=== PATIENT | female | born 1970 | race Caucasian/White ===

== ENCOUNTER → 2017-03-26 | Outpatient (CLI) | payer OTHER ==
--- NOTE | 2017-03-26 12:21 | RAD ---
Examination: Ultrasound thyroid History: History of elevated TSH levels, fatigue, heart pounding Comparison: None available. Findings : The right lobe of the thyroid gland measures 4.2 x 1.3 x 1.1 cm. The left lobe of thyroid gland measures 3.4 x 0.8 x 0.8 cm. Tiny subcentimeter nodules identified in the right and left lobes of the thyroid gland the largest measuring 5 mm in the inferior left lower thyroid gland. The isthmus measures 3.7 mm in AP dimension. Impression: Tiny subcentimeter nodules identified in the right and left lobes of the thyroid gland with the largest measuring 5 mm.
== END | disposition home or self-care (01) ==
LOC: US 10:50
PROVIDERS: ATTEND Physician Assistant Medical
DX: E04.2 Nontoxic multinodular goiter (principal); R53.83 Other fatigue; R94.6 Abnormal results of thyroid function studies
CPT/HCPCS: 76536